=== PATIENT | male | born 1975 | race Caucasian/White ===

== ENCOUNTER 2024-08-27 08:34 | Day surgery (SDC) | payer OTHER, SELFPAY ==
[2024-08-19 11:31] LABS: % Basophils 0.7 % (0-2); % Eosinophils 2.6 % (0-6); % Immature Granulocytes 0.2 % (0-0.5); % Lymphocytes 42.3 % (20.5-51.1); % Monocytes 8.4 % (1.7-9.3); % Neutrophils 45.8 % (42.2-75.2); Absolute Basophils 0.1 10^3/uL (0-0.2); Absolute Eosinophils 0.2 10^3/uL (0-0.7); Absolute Lymphocytes 3.5 10^3/uL (1.2-3.4); Absolute Monocytes 0.7 10^3/uL (0.1-0.6); Absolute Neutrophils 3.7 10^3/uL (1.4-6.5); Hematocrit 45.2 % (39.0-52.0); Hemoglobin 15.2 g/dL (13.0-18.0); Mean Corp Hgb Conc. 33.6 g/dL (33.0-37.0); Mean Corpuscular Hgb 30.9 pg (27.0-31.0); Mean Corpuscular Volume 91.9 fL (80.0-94.0); Mean Platelet Volume 9.4 fL (7.4-10.4); Nucleated Red Blood Cells % 0 % (-); Platelet Count 299 10^3/uL (130-400); Red Blood Cell Count 4.92 10^6/uL (4.70-6.10); Red Cell Dist. Width 13.6 % (11.5-14.5); White Blood Cell Count 8.2 10^3/uL (4.8-10.8)
[2024-08-19 12:11] LABS: ALT (SGPT) 39 U/L (0-50); AST (SGOT) 36 U/L (17-59); Albumin 4.5 g/dl (3.5-5.0); Alkaline Phosphatase 45 U/L (38-126); Blood Urea Nitrogen 17 mg/dl (9-20); Calcium 9.7 mg/dl (8.4-10.2); Carbon Dioxide 27 mmol/L (22-30); Chloride 107 mmol/L (98-107); Glucose 79 mg/dl (70-99); Magnesium 2.1 mg/dl (1.6-2.3); Potassium 5.1 mmol/L (3.5-5.1); Sodium 146 mmol/L (135-145); Total Bilirubin 1.1 mg/dl (0.2-1.3); Total Protein 7.2 g/dl (6.3-8.2); eGFR > 60.00
[2024-08-19 13:47] VITALS: BMI 38.6
[2024-08-27] VITALS (15 sets, daily range): BP systolic 119–144; BP diastolic 80–102
--- NOTE | 2024-08-27 12:39 | ITS.CL.ABL ---
[facility] - Ablation
Ablation
Procedure Report:
Primary Physician: Junie Elizondo MD
Primary Director Of Video Analytics: Steven Stack DO
Procedure Date: 08/27/2024
Procedure
Electrophysiology Study with SVT ablation
Left atrial recording / pacing
IV drug for arrhythmia induction
Patient History
Patient is a pleasant English-speaking male with a past medical history significant for tobacco use, obesity, hypercholesterolemia, and paroxysmal symptomatic SVT. Patient had multiple emergency room visits with SVT. Unfortunately, no recording or
ECG of these SVTs however each were documented to have terminated with adenosine and reported to be narrow complex. Due to patient's symptomatic paroxysmal SVT, patient presenting for electrophysiology study and possible SVT RFA.
Method
After informed consent was obtained, the patient was brought to the EP lab in a post-absorptive, non-sedated state. A peripheral IV was in place. Continuous electrocardiography, blood pressure and pulse oximetry monitoring was initiated and
cardioversion / defibrillator electrodes were positioned on the chest in an AP orientation. A 'time-out' was called. Conscious sedation was administered with the assistance of the anesthesia services, and local anesthesia was given at the femoral
vein access sites.
Using modified Seldinger technique, vascular access was achieved and sheaths were placed. Multipolar catheters were advanced to the coronary sinus, His bundle recording position, right ventricle, and high right atrium. Following the determination
of baseline conduction intervals, comprehensive EP study was performed. Pacing and recording from the RA, RV, HBE, and CS / LA was performed.
For arrhythmia details, see below.
Fluoroscopy time:
11.5 min; 126.33 mGy; DAP 18.0
Total RF time:
3 min 53s
Estimated Blood Loss
5 mL
Complications
None
At the end of the procedure, all catheters and sheaths were removed and hemostasis was assured with Vascade. Protamine used for reversal. The patient was returned to the recovery area in stable condition.
Access Sites:
Left Femoral Vein: 2 sheaths (7 Fr, 6 Fr)
Right Femoral Vein: 2 sheaths (9 Fr upsized to 11.5 Fr, 6 Fr)
Baseline Intervals:
Rhythm: Sinus rhythm
SD: 152 ms
AH: 99 ms
HV: 42 ms
QRS: 109 ms
QT: 432 ms
QTc: 470 ms
A-A: 844 ms
R-R: 844 ms
Post-Procedure Intervals:
SD: 151 ms
AH: 90 ms
HV: 45 ms
QRS: 103 ms
QT: 364 ms
QTc: 440 ms
A-A: 678 ms
R-R: 678 ms
AV Conduction:
- AVWB at 380 msec
- VAWB at 380 msec
Refractory Periods
- AVNERP: 600/310 ms
- AERP (post): 550/210 ms
Procedure Synopsis:
The patient entered the room in sinus rhythm. Following access and catheter placement as noted above, electrophysiology study was initiated. Patient had evidence of an AH jump with decremental atrial pacing (S1/S2). There was no arrhythmia
induction at this time. Para-Hisian pacing demonstrated a alfredo response. Isoproterenol was started. Repeat electrophysiology study was performed. AH jump with decremental pacing was again noted additionally, there was evidence of echo beat/AV
alfredo 'spin'. Isoproterenol infusion was discontinued. Heparin was given for ACT 300�400. HD advisor grid advanced through short 9 [place] sheath into right atrium. During right atrial mapping, patient entered into spontaneous narrow complex SVT
with a tachycardia cycle length of 360 ms. Ventricular overdrive pacing demonstrated a VAV response indicative of AVNRT or AVRT. PPI minus TCL greater than 115 ms, SA minus VA greater than 85 ms both indicative of likely AV alfredo reentry.
Activation appeared to be midline. Tachycardia was terminated with ventricular overdrive pacing. Right atrial mapping was continued in sinus rhythm evaluating for areas of slow pathway. Careful marking was performed of areas with HIS signal. HD
advisor grid was removed and short 9 [place] sheath was exchanged for 11.5 [place] steerable sheath. Tacticath DF SE was introduced through the steerable sheath into the right atrium. Catheter was placed in the area of the slow pathway under
electroanatomic mapping and fluoroscopy at the level of the coronary sinus floor/mid body no higher than the roof. EGM signals demonstrated a 1: 3�1:5 ratio of a�V with no evidence of HIS signal on ablation distal. Radiofrequency ablation was
performed at 25 W with careful monitoring of impedance, temperature, AV conduction. During ablation in the slow pathway region, junctional beats were noted. During ablation and after ablation, AV alfredo conduction remained intact. Following
completion of ablation, a waiting period was observed. Isoproterenol infusion was once more started and electrophysiology study was performed. There was no evidence of AH jump or inducible arrhythmia. Isoproterenol infusion was discontinued and
washout phase was observed. Repeat electrophysiology study was once more performed again, no evidence of AH jump or inducible arrhythmia. Catheters were safely removed from the body and hemostasis was achieved as noted above. Baseline
measurements were performed and remained consistent with preablation numbers.
Recommendations
-Anticipate discharge home if patient meets clinical metrics and is stable for discharge
- Bedrest with straight-leg precautions
- Continue home medications as indicated
- Follow-up in office as scheduled
Niels Coburn DO
Clinical Cardiac Electrophysiology
cc: Junie Elizondo MD; Steven Stack DO
[2024-08-27 13:58] LABS: ACT-LR - POC 263 Seconds (116-155)
[2024-08-27 14:12] LABS: ACT-LR - POC 287 Seconds (116-155)
[2024-08-27 14:29] LABS: ACT-LR - POC 253 Seconds (116-155)
[2024-08-27 15:10] LABS: ACT-LR - POC 240 Seconds (116-155)
[2024-08-27 15:29] LABS: ACT-LR - POC 163 Seconds (116-155)
[2024-08-27] MEDS: TYLENOL 650 MG PO (16:11)
== END 2024-08-27 18:09 | disposition home or self-care (01) ==
LOC: CATH 08:34
PROVIDERS: ATTENDING PHYSICIAN Internal Medicine Cardiovascular Disease; FAMILY PHYSICIAN Nurse Practitioner Adult Health; OTHER PHYSICIAN Student in an Organized Health Care Education/Training Program
DX: I47.19 Other supraventricular tachycardia (principal); E66.9 Obesity, unspecified; Z68.35 Body mass index [BMI] 35.0-35.9, adult; Z86.19 Personal history of other infectious and parasitic diseases; R74.8 Abnormal levels of other serum enzymes; Z72.0 Tobacco use; R07.89 Other chest pain; M54.2 Cervicalgia; R42 Dizziness and giddiness; R55 Syncope and collapse; R06.02 Shortness of breath; E78.00 Pure hypercholesterolemia, unspecified
CPT/HCPCS: C1894; C1766; C1730; C2630; C1892; 36415; 80053; 83735; 85025; 85347; 93005; 93623; 93653; C1732; C1760